=== PATIENT | male | born 1985 | race Caucasian/White ===

== ENCOUNTER 2016-12-11 09:33 | Emergency (ER) | payer OTHER ==
[~2016-12-11] VITALS: Ht 188 cm; Wt 77.1 kg
[2016-12-11 09:37] VITALS: BP 120/75
== END 2016-12-11 10:14 | disposition home or self-care (01) ==
LOC: ER 09:36
DX: F11.23 Opioid dependence with withdrawal (principal)
CPT/HCPCS: 99283; A4606; Z7610